=== PATIENT | female | born 1965 | race Caucasian/White ===

== ENCOUNTER → 2024-03-14 13:15 | Outpatient (REF) | payer BC, SELFPAY ==
[2024-03-14 13:29] VITALS: BP 139/73; BP_SYST 79
== END ==
LOC: RADI 13:15
PROVIDERS: ATTENDING PHYSICIAN Orthopaedic Surgery Sports Medicine; FAMILY PHYSICIAN Family Medicine
DX: M71.21 Synovial cyst of popliteal space [Baker], right knee (principal); M25.561 Pain in right knee
CPT/HCPCS: 20612